=== PATIENT | male | born 1990 | race Two or more races ===

== ENCOUNTER 2024-10-14 00:33 | Emergency (ER) | payer MEDICAID ==
[~2024-10-14] VITALS: Ht 170.2 cm; Wt 88.6 kg
[2024-10-14 00:38] VITALS: O2SAT 100
[2024-10-14 00:42] VITALS: BP 129/89; PULSE 116; RESP 15; O2SAT 100
[2024-10-14] MEDS ORDERED: VALA100044 PO (00:59)
[2024-10-14 01:42] VITALS: TEMP 98.5
[2024-10-14] MEDS: ACETAMINOPHEN 325MG TABLET PO ONE (01:42)
== END 2024-10-14 01:43 | disposition home or self-care (01) ==
LOC: ER 00:33
DX: R21 Rash and other nonspecific skin eruption (principal)
CPT/HCPCS: 99282